=== PATIENT | male | born 1945 | race Caucasian/White ===

== ENCOUNTER 2019-03-22 16:00 | Emergency (ER) | payer MEDICARE ==
[~2019-03-22] VITALS: Ht 172.7 cm; Wt 70.0 kg
[2019-03-22 17:54] LABS: CHLORIDE 108 mEq/L (98-107)
[2019-03-22 17:55] LABS: HEMATOCRIT. 31.3 % (42.0-52.0); HEMOGLOBIN. 10.4 g/dL (14.0-18.0); MEAN CORPUSCULAR HEMOGLOBIN 30.3 pg (28.0-32.0); MEAN CORPUSCULAR VOLUME 90.9 fL (80.0-94.0); MEAN PLATELET VOLUME 7.9 fl (7.4-10.4); PLATELET 302 x1000/uL (130-400); RED BLOOD CELL COUNT 3.45 mill/uL (4.7-6.1)
[2019-03-22 17:58] LABS: ETHANOL BLOOD 288 mg/dL
[2019-03-22 18:34] LABS: PLATELET ESTIMATE NORMAL
[2019-03-22] MEDS ORDERED: POTASSIUM CHLORIDE 20MEQ TABLET SR PO ONE (20:45)
[2019-03-23 08:03] VITALS: BP 142/67
== END 2019-03-23 10:00 | disposition left against medical advice (07) ==
LOC: ER 16:25
DX: F10.129 Alcohol abuse with intoxication, unspecified (principal); Y90.8 Blood alcohol level of 240 mg/100 ml or more; E11.9 Type 2 diabetes mellitus without complications; Z59.0 Homelessness; M25.552 Pain in left hip; M25.551 Pain in right hip; M25.562 Pain in left knee; M25.561 Pain in right knee; M25.572 Pain in left ankle and joints of left foot; M25.571 Pain in right ankle and joints of right foot; Z91.81 History of falling
CPT/HCPCS: 36415; 80053; 80320; 82962; 85025; 99284; G0480

== ENCOUNTER 2019-03-23 22:52 | Emergency (ER) | payer MEDICARE ==
[~2019-03-23] VITALS: Ht 177.8 cm; Wt 85.0 kg
[2019-03-24 12:30] VITALS: BP 147/71
== END 2019-03-24 13:35 | disposition home or self-care (01) ==
LOC: ER 22:52
DX: F10.129 Alcohol abuse with intoxication, unspecified (principal); Y90.8 Blood alcohol level of 240 mg/100 ml or more; R03.0 Elevated blood-pressure reading, without diagnosis of hypertension; F17.210 Nicotine dependence, cigarettes, uncomplicated; Z71.6 Tobacco abuse counseling; Z59.0 Homelessness; Z91.81 History of falling
CPT/HCPCS: 36415; 80320; 82962; 99284; 99406; G0480

== ENCOUNTER 2019-03-24 21:03 | Emergency (ER) | payer MEDICARE, OTHER ==
[~2019-03-24] VITALS: Ht 177.8 cm; Wt 80.0 kg
[2019-03-25 00:17] LABS: BASOPHILS % 1.6 % (0.0-2.0); EOSINOPHILS % 1.7 % (0.0-5.0); HEMATOCRIT. 34.6 % (42.0-52.0); HEMOGLOBIN. 11.4 g/dL (14.0-18.0); MEAN CORPUSCULAR HEMOGLOBIN 30.2 pg (28.0-32.0); MEAN CORPUSCULAR VOLUME 91.6 fL (80.0-94.0); MEAN PLATELET VOLUME 8.5 fl (7.4-10.4); MONOCYTES % 11.7 % (2.0-8.0); PLATELET 306 x1000/uL (130-400); RED BLOOD CELL COUNT 3.78 mill/uL (4.7-6.1); RED CELL DISTRIBUTION WIDTH 15.8 % (11.6-14.6)
[2019-03-25 00:17] LABS: CLARITY URINE CLEAR (CLEAR); COLOR URINE YELLOW (YELLOW); KETONES URINE NEGATIVE (NEGATIVE); LEUKOCYTE ESTERASE URINE NEGATIVE (NEGATIVE); NITRITE URINE NEGATIVE (NEGATIVE); OCCULT BLOOD URINE NEGATIVE (NEGATIVE); PH URINE 5.5 (4.5-8.0); PROTEIN URINE 1+ (NEGATIVE); SPECIFIC GRAVITY URINE 1.011 (1.005-1.030); UROBILINOGEN URINE 0.2 E.U./dL (0.2-1.0)
[2019-03-25 00:18] LABS: CHLORIDE 106 mEq/L (98-107)
[2019-03-25 00:22] LABS: ETHANOL BLOOD 130 mg/dL
[2019-03-25 00:36] LABS: *AMPHETAMINES SCREEN URINE NEGATIVE (NEGATIVE); *BARBITURATES SCREEN URINE NEGATIVE (NEGATIVE); *BENZODIAZEPINES SCREEN URINE PRESUMTIVE POSITIVE (NEGATIVE); *COCAINE SCREEN URINE NEGATIVE (NEGATIVE)
[2019-03-25 00:37] LABS: CANNABINOID URINE SCREEN NEGATIVE (NEGATIVE); METHADONE URINE SCREEN NEGATIVE (NEGATIVE); OPIATES URINE SCREEN NEGATIVE (NEGATIVE); PHENCYCLIDINE URINE SCREEN NEGATIVE (NEGATIVE)
[2019-03-25 05:31] VITALS: BP 129/65
== END 2019-03-25 13:02 | disposition left against medical advice (07) ==
LOC: ER 21:03
DX: F10.129 Alcohol abuse with intoxication, unspecified (principal); Y90.6 Blood alcohol level of 120-199 mg/100 ml; R68.83 Chills (without fever); I10 Essential (primary) hypertension; E11.9 Type 2 diabetes mellitus without complications
CPT/HCPCS: 36415; 80053; 80305; 80307; 80320; 80329; 81003; 82962; 85025; 99283; G0480

== ENCOUNTER 2019-03-25 20:27 | Emergency (ER) | payer MEDICARE, OTHER ==
[~2019-03-25] VITALS: Ht 185.4 cm; Wt 87.0 kg
[2019-03-26 06:00] VITALS: BP 161/75
== END 2019-03-26 12:21 | disposition left against medical advice (07) ==
LOC: ER 20:27
DX: Z59.0 Homelessness (principal); I10 Essential (primary) hypertension; R46.0 Very low level of personal hygiene; Z75.1 Person awaiting admission to adequate facility elsewhere; E11.42 Type 2 diabetes mellitus with diabetic polyneuropathy; S00.81XA Abrasion of other part of head, initial encounter; X58.XXXA Exposure to other specified factors, initial encounter; Y93.9 Activity, unspecified; Y92.9 Unspecified place or not applicable; Z79.84 Long term (current) use of oral hypoglycemic drugs
CPT/HCPCS: 99283